=== PATIENT | female | born 1945 | race Caucasian/White ===

== ENCOUNTER 2019-11-16 11:17 | Emergency (ER) | payer OTHER, SELFPAY ==
--- NOTE | ~2019-11-16 | XR_ITS ---
EXAMINATION: XR chest 2V DATE: 11/16/2019 12:43 INDICATION: Shortness of breath. Dizziness. TECHNIQUE: Frontal and lateral views of the chest were obtained. COMPARISON: Chest 2 views 06/20/2017 FINDINGS: There is mild scarring at left lung apex without change. No pleural effusion or pneumothora x. The heart size is normal. IMPRESSION: 1. Mild scarring at left lung apex. Reviewed, dictated and finalized at location A.
--- NOTE | 2019-11-16 11:19 | ECG_ITS ---
Measurements Intervals [place] Rate: 75 P: 52 HI: 122 QRS: 40 QRSD: 81 T: 58 QT: 400 QTc: 447 Interpretive Statements SINUS RHYTHM BASELINE ARTIFACT- I, II, III, AVR, AVL, AVF, V1-V3 BORDERLINE ECG Electronically Signed On 11-16-2019 11:31:46 CDT by Jassi Joseph D.O.
[2019-11-16 11:27] VITALS: BP 134/66; PULSE 75; RESP 30; TEMP 36.9; O2SAT 100
[2019-11-16 11:52] VITALS: BP 178/97; PULSE 72; RESP 30; O2SAT 100
--- NOTE | 2019-11-16 11:52 | ED.GENADULT ---
HPI - General Adult General Chief complaint: Unspecified Stated complaint: SOB Time Seen by Provider: 11/16/19 11:40 History of Present Illness HPI narrative: BIBEMS from PCP office for SOB and fatigue. She reports that she has felt short of breath for the past few days. This is associated with tingling in the hands and feet, chills, weakness, and fatigue. She reports poor PO intake. Related Data Home Medications Medication Instructions Recorded Confirmed citalopram 40 mg tablet 40 mg PO DAILY tablet 05/18/19 levothyroxine 25 mcg tablet 25 mcg PO DAILY 05/18/19 Allergies Allergy/AdvReac Type Severity Reaction Status Date / Time cefaclor Allergy Unknown unknown Verified 11/16/19 10:54 Review of Systems Review of Systems: All systems reviewed & are unremarkable except as noted in HPI and below Constitutional: Constitutional: Reports chills and Denies fever(s) Eyes: Eyes: Denies change in vision ENT: Denies sore throat Cardiovascular: Cardiovascular: Denies chest pain Respiratory: Respiratory: Denies cough and Reports dyspnea Gastrointestinal: Gastrointestinal: Denies nausea and Denies vomiting Genitourinary: Genitourinary: Denies dysuria Neurologic: Denies numbness and Denies weakness Psychiatric: Psychiatric: Reports anxiety PMFSH Past Medical History Medical History (Updated 11/16/19 @ 15:30 by Carlitos Altamirano MD) BP (high blood pressure) Insomnia Neuropathy OCD (obsessive compulsive disorder) PAF (paroxysmal atrial fibrillation) Squamous cell carcinoma, tongue border Family History Family History (Updated 01/10/16 @ 23:21 by DOCTOR UNKNOWN) Sibling Patient's sister is in good health Mother Family history of malignant neoplasm of brain Patient's mother is Father Family history of heart disease in male family member before age 55 Social History Social History (Updated 05/19/19 @ 10:22 by Mary Rasheed) Smoking packs per day: 0.5 Smoking cigarettes per day: 10.0 Smoking status: Former smoker Tobacco type: cigarettes Second hand tobacco smoke exposure: No Smoking end date: 06/14/89 Alcohol intake: never Substance use: never Substance use type: does not use Gender identity (if verbalized by the patient): Female Exam Const: General: healthy appearing and alert Orientation/consciousness: patient oriented x3 Limitations: no limitations HENMT: Head: normal to inspection Eyes: Pupils: Equal, round and reactive pupils present Resp: Effort & Inspection: tachypneic Auscultation: clear to auscultation bilaterally Cardio: Rate: regular rate Rhythm: regular rhythm GI: GI Palp: Yes Soft to palpation and No Tenderness to palpation present (GI) Skin: General skin exam: normal color Wounds: no wounds Neuro: General: patient oriented x3, moves all extremities and CN's II-XI intact bilaterally Speech: normal speech Extrem: General: normal to inspection and no edema Psych: Affect: Anxious affect present Course Vital Signs Vital signs: Vital Signs Temperature 36.9 C 11/16/19 11:27 Pulse Rate 75 11/16/19 11:27 Respiratory Rate 30 H 11/16/19 11:27 Blood Pressure 134/66 11/16/19 11:27 Pulse Oximetry 100 11/16/19 11:27 Temperature 36.9 C 11/16/19 11:27 Pulse Rate 74 11/16/19 15:27 Respiratory Rate 25 H 11/16/19 15:27 Blood Pressure 157/96 H 11/16/19 15:27 Pulse Oximetry 98 11/16/19 15:27 Medical Decision Making MDM Narrative Medical decision making narrative: She is very anxious. This is supported by significant respiratory alkalosis. Labs also indicate mild dehydration. Medical Records Medical records reviewed: Yes I reviewed the patient's medical records. Vital Signs Vital Signs: Vital Signs Temperature 36.9 C 11/16/19 11:27 Pulse Rate 75 11/16/19 11:27 Respiratory Rate 30 H 11/16/19 11:27 Blood Pressure 134/66 11/16/19 11:27 Pulse Oximetry 100 11/16/19 11:27
[2019-11-16 11:58] LABS: Potassium 3.9 mmol/L (3.4-5.0); Sodium 137 mmol/L (137-145)
[2019-11-16 11:59] LABS: Blood Urea Nitrogen 17 mg/dL (7-17); Carbon Dioxide 18 mmol/L (22-30); Chloride 107 mmol/L (98-107); Estimated CRCL calculation 28 ml/min; Estimated Glomerular Filt Rate 34; Glucose 100 mg/dL (65-105)
[2019-11-16 12:15] LABS: Hematocrit 45.2 % (37.0-47.0); Hemoglobin 15.3 g/dL (12.0-15.0); Mean Corpuscular Hemoglobin 30.7 pg (26-34); Mean Corpuscular Volume 90.6 fl (80-100); Mean Platelet Volume 11.5 fl (7.4-10.4); Platelet Count Result 291 k/mm3 (150-375); Red Blood Count 4.99 M/mm3 (4.2-5.4); White Blood Count 9.9 K/mm3 (4.5-10.0)
[2019-11-16 12:16] LABS: Basophils Percent Auto 0.4 % (0.2-1.2); Eosinophils Percent Auto 0.1 % (0-4.4); Immature Granulocyte Absolute 0.03 K/mm3 (0.00-0.031); Immature Granulocyte Percent A 0.3 % (0-0.5); Lymphocytes Absolute Auto 1.66 K/mm3 (0.9-3.2); Lymphocytes Percent Auto 16.7 % (18.3-44.2); Mean Corpuscular HGB Conc 33.8 g/dl (32-36); Monocytes Absolute Auto 0.7 K/mm3 (0.1-0.6); Monocytes Percent Auto 7.1 % (2.6-8.5); Neutrophils Absolute Auto 7.5 K/mm3 (1.3-6.7); Neutrophils Percent Auto 75.4 % (45.5-73.1); Red Cell Distribution Width 13.4 % (11.5-14.5)
[2019-11-16 12:17] LABS: Immature Platelet Fraction Pct 2.6 % (0.9-11.2)
[2019-11-16 12:27] LABS: pH ABG 7.669 (7.350-7.450)
[2019-11-16 12:28] LABS: Alveolar/Arterial O2 Gradient 28.6 mmHg; Base Excess ABG -0.8 mEq/l (+/-2.0); Fractional Inspired Oxygen 21 %; HCO3 ABG 16.1 mEq/l (22.0-26.0); Oxygen Content ABG 20.3 %vol (16.0-22.0); Oxygen Saturation ABG 98.8 % (95.0-100.0); Oxyhemoglobin 97.3 % THb (90.0-100.0); PCO2 ABG 14.3 mmHg (35.0-45.0); PO2 FiO2 Ratio Arterial Blood 4.95 %; Site Drawn RIGHT BRACHIAL; Total Hemoglobin 14.8 g/dL (12.0-18.0)
[2019-11-16 12:29] LABS: Device ROOM AIR
[2019-11-16] MEDS: SODIUM CHLORIDE 0.9% IV 1,000 ML 999 ML IV CONT (12:43)
[2019-11-16 12:45] VITALS: BP 138/82; PULSE 72; RESP 27; O2SAT 100
[2019-11-16] MEDS: LORAZEPAM INJ 2 MG/ML VIAL 1 MG IV PUSH (13:17)
--- NOTE | 2019-11-16 13:20 | PC.NURSE ---
Patient attempted to use bathroom for urine sample and is unable to go at this time.
[2019-11-16 14:38] LABS: Add Urine Microscopic? YES; Appearance Urine Clear (Clear); Bilirubin Urine Negative (Negative); Blood Urine Negative (Negative); Color Urine Yellow (Yellow); Glucose Urine UA Negative (Negative); Ketones Urine 1+ mg/dL (Negative); Leukocyte Esterase Ur Negative LEU/UL (Negative); Mucus Urine Rare /lpf; Nitrate Urine Negative (Negative); Protein Urine 1+ mg/dL (Negative); RBC Urine 0-2 /hpf (0-2); Specific Grav Ur 1.016 (1.001-1.035); WBC Urine 0-3 /hpf
[2019-11-16 15:27] VITALS: BP 157/96; PULSE 74; RESP 25; O2SAT 98
[2019-11-16] MEDS: CLONAZEPAM 0.5 MG TAB 2 MG PO (15:31)
== END 2019-11-16 15:46 | disposition home or self-care (01) ==
PROVIDERS: Emergency Provider Emergency Medicine; PCP Family Medicine
DX: F41.9 Anxiety disorder, unspecified (principal); E86.0 Dehydration; I10 Essential (primary) hypertension; I48.0 Paroxysmal atrial fibrillation; G62.9 Polyneuropathy, unspecified; Z87.891 Personal history of nicotine dependence; F42.9 Obsessive-compulsive disorder, unspecified
CPT/HCPCS: 36415; 36600; 51701; 71046; 80048; 81001; 82805; 85025; 85055; 93005; 96361; 96374; 99284; A9270; J2060; J7030

== ENCOUNTER → 2020-03-08 10:25 | Outpatient (CLI) | payer OTHER, SELFPAY ==
--- NOTE | ~2020-03-08 | MR_ITS ---
EXAMINATION: MR brain/brain stem wo con EXAM DATE: 03/08/2020 11:10 INDICATION: Difficulty with speech. Transient cerebral ischemic attack. TECHNIQUE: Magnetic resonance imaging (MRI) of the brain/brain stem obtained without contrast. Sagitt al T1, axial diffusion, gradient echo (T2*), T1, T2, FLAIR sequences obtained. There is no prior st udy for comparison. FINDINGS: There are no areas of restricted diffusion to suggest acute infarction. There is no acute hemorrhage seen on the T2*, a hemosiderin sensitive sequence. No intraparenchymal brain mass lesion. There is mild periventricular and subcortical T2/FLAIR signal hyperintensity, nonspecific but probab ly related to small vessel ischemic disease (microangiopathy). There is mild prominence of the sulc i and ventricles related to cerebral atrophy. There are no extra-axial collections. Flow voids are seen in the cerebral arteries on the T2-weighted sequences consistent with their expected patency. Patient has had bilateral ocular lens surgery. Soft tissue is unremarkable. IMPRESSION: 1. No acute intracranial findings. 2. Mild age related findings. Reviewed, dictated and finalized at location B.
== END ==
PROVIDERS: PCP Family Medicine; Visit Provider Family Medicine
DX: G45.9 Transient cerebral ischemic attack, unspecified (principal)
CPT/HCPCS: 70551

== ENCOUNTER 2021-03-20 14:48 | Outpatient (RCR) | payer OTHER, SELFPAY | END 2021-03-20 23:59 | disposition home or self-care (01) | LOC: ANHAUDIO 14:48 | PROVIDERS: PCP Family Medicine; Visit Provider Family Medicine | DX: Z46.1 Encounter for fitting and adjustment of hearing aid (principal) | CPT/HCPCS: 92593 ==

== ENCOUNTER 2024-11-10 09:42 | Outpatient (CLI) | payer OTHER, SELFPAY ==
--- OUTSIDE RECORDS SUMMARY | 2024-11-10 09:55 | XMS_ITS | Clinical Summary ---
Author Organization [facility] Address [address] [place] [address] Care Team Providers Care Wheel Roller Name Role Phone Beverly Rey MD Primary Care Provider Miscellaneous, Not In File Unavailable Unava ilable Allergies Active Allergy Reactions Criticality Noted Date Comments Cefaclor Unknown,Anaphylaxis High 07/20/2017 Medications citalopram (CeleXA) 40 mg tablet 20 mg nightly 2 06/10/2017 Active pregabalin (LYRICA) 200 mg capsule Take 200 mg by mouth 3 (three) times a day 11/05/2020 Active zolpidem (AMBIEN) 10 mg tablet Take 0.5 mg by mouth nightly 11/10/2020 Active atorvastatin (LIPITOR) 80 mg tablet Take 1 tablet (80 mg total) by mouth nightly 30 tablet 11 01/31/2021 Active levothyroxine (SYNTHROID) 50 mcg tablet daily 03/03/2021 Active aspirin 325 mg tablet Take 325 mg by mouth daily Active liothyronine (CYTOMEL) 5 mcg tablet Take 10 mcg by mouth daily Active ezetimibe (ZETIA) 10 mg tablet TAKE 1 TABLET BY MOUTH EVERY DAY 30 tablet 12/11/2022 Active Active Problems Problem Noted Date Diagnosed Date Hemiparesis affecting left side as late effect o f stroke 03/07/2022 Mixed hyperlipidemia 03/07/2022 Carotid occlusion, bilateral 01/09/2022 Snoring 01/09/2022 Neuropathy 01/09/2022 Multifactorial gait disorder 01/09/2022 Pure hypercholesterolemia 03/18/2021 Stroke due to Right ICA stenosis 01/22/2021 Atelectasis of right middle ear 03/26/2020 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 07/17/2015 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/26/2014 Resolved Problems Problem Noted Date Diagnosed Date Resolved Date Typical atrial flutter (CMS/HCC) 07/20/2017 01/09/2022 Immunizations Immunization Administration Dates Next Due Influenza, Quad, Adjuvantated, Intramuscular 06/2019 Influenza, Trivalent, Adjuvanted, Intramuscular 02/18/2019 Influenza, Trivalent, High D ose, Split, Preservative Free, Intramuscular 03/07/2018,03/06/2018 Influenza, Trivalent, IM (MDV) 05/18/2013 Influenza, Trivalent, Preservative Free, Intramu scular 03/23/2017,03/20/2015 Pfizer SARS-CoV-2 Monovalent Vaccination (12+ Yrs) WARREN-READY TO USE 01/09/2022 Pneumococcal Conjugate PCV 13 03/06/2019, 019 Pneumococcal Polysaccharide PPV23 03/05/2020 ZOSTER Recombinant 01/15/2020,03/31/2019 Surgical History Surgery Date Site/Laterality Comments PORT REMOVAL 05/16/2015 N/A CHANGE G TUBE 02/25/2015 N/A IR G TUBE PLACEMENT PERCUTANEOUS 01/18/2015 N/A PORT PLACEMENT CHEST >5 YEARS 10/13/2014 N/A BREAST BIOPSY 04/28/2018 Right ANGIO SELECTIVE CAROTID 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 Never 03/03/2021 Average Number of Drinks Not on file 021 Frequency of Binge Drinking Not on file 02/13 PHQ-2 Answer Date Recorded PHQ-2 Total Score (If total score is 3 or more points, staff should administer the PHQ-9) 0 01/22/2021 Comments No Sex and Gender Information Value Date Recorded Sex Assigned at Not on file Legal Sex Female 1:[address] ABSTRACTOR Gender Identity Not on file Sexual Orientation Not on file Obstetrics History Last Filed Vital Signs Vital Sign Reading Time Taken Comments Blood Pressure 136/85 01/09/2022 9:47 AM CDT Pulse 71 01/09/2022 9:47 AM CDT Temperature 36.7 C (98 F) 08/29/2021 7:36 AM CDT Respiratory Rate 17 08/29/2021 9:15 AM CDT Oxygen Saturation 98% 08/29/2021 10:00 AM CDT Inhaled Oxygen Concentration - - Weight 75.8 kg (167 lb) 01/09/2022 9:47 AM CDT Height 160 cm (5' 3) 01/09/2022 9:47 AM CDT Body Mass Index 29.58 01/09/2022 9:47 AM CDT Plan of Treatment Health Maintenance Due Date Last Done Comments Hepatitis C Screening 1945 Osteoporosis Screening-Bone Density Scan 1945 DTaP/Tdap/Td Vaccine (1 - Tdap) 11/02/1958 Hepatitis B Screening 11/02/1965 Well Visit 65+ 11/02/2012 Depression Screening 01/22/2022 01/22/2021 Fall Risk Assessment 08/29/2022 08/29/2021 Covid-19 Vaccine (2023-2 5 season) 2024 01/09/2022, 05/28/2021, 08/19/2020 Influenza Vaccine (Season Ended) 2025 05/28/2021, 02/13/2020, 02/18/2019, Additional history exists Zoster Vaccine Completed 01/15/2020, 03/31/2019 Pneumococcal vaccine 65+ Completed 020, 03/06/2019, 03/05/2019 Breast Cancer Screening-Mammogram Discontinued 06/26/2020, 04/20/2019, 04/01/2018, Additional history exists Medical Devices Implanted Type Area Corporation Secretary Device Identifier Shelf Expiration Date Model / Serial / Lot Arteaga Vascular 47740-23 Starclose Se 6fr Clip Vascular Device Closure Nitinol Sterile - [id number] Implanted:Qty: 1 on 01/24/2021 at [facility] [employer] 09/12/2021 1467 9- / / [id number] Medtronic Inc [id number] Protege Gps Exprt 6mm 6fr 40mm 135cm Rapid Exchange Self Expand - [id number] Implanted:Qty: 1 on 01/28/2021 at [facility] [employer] Inc SECX-6 -40-13 5 / / [employer] [id number] Starclose Se 6fr Clip Vascular Device Closure Nitinol Sterile - [id number] - [id number] Implanted:Qty: 1 on 01/28/2021 at [facility] [employer] 1467 02-12 [id number] / Procedures Procedure Name Priority Date/Time Associated Diagnosis Comments SCREENING MAMMOGRAM BILATERAL W DARIEN W IMPLANTS Schedule Routine, Read Routine (OP Routine) 06/26/2020 2:[address] ABSTRACTOR Encounter for screening mammogram for malignant neoplasm of breast from Last 3 Months or Most Recently Relevant to Health Maintenance Results * Screening Mammogram Bilateral w Darien w Implants (06/26/2020 2:[address] ABSTRACTOR) Anatomical Region Laterality Modality Breast Bilateral Mammography Narrative 07/01/2020 12:[address] ABSTRACTOR Mammogram Technique: Bilateral Digital Breast Tomosynthesis, Bilateral C-view 2D Screening mammogram. Views obtained: bilateral craniocaudal; bilateral craniocaudal implant displaced; bilateral mediolateral oblique; and bilateral mediolateral oblique implant displaced. Computer Aided Detection was performed. Mammogram Findings: The present examination has been compared to prior imaging studies performed at [facility] on 04/01/2018, 04/08/2018 and 04/20/2019. The breasts are heterogeneously dense, which may obscure small masses. There are bilateral silicone gel implants. There is no suspicious abnormality in either breast. Impression: There is no mammographic evidence of malignancy. Annual screening mammography is recommended. OVERALL FINAL ASSESSMENT: BI-RADS CATEGORY 1: Negative. Procedure Note Lottie John MD - 07/01/2020 Mammogram Technique: Bilateral Digital Breast Tomosynthesis, Bilateral C-view 2D Screening mammogram. Views obtained: bilateral craniocaudal; bilateralcraniocaudal implant displaced; bilateral mediolateral oblique; and bilateral mediolateral oblique implant displaced. Computer Aided Detection was performed. Mammogram Findings: The present examination has been compared to prior imaging studies performed at [facility] on 04/01/2018, 04/08/2018 and 04/20/2019. The breasts are heterogeneously dense, which may obscure small masses. There are bilateral silicone gel implants. There is no suspicious abnormality in either breast. Impression: There is no mammographic evidence of malignancy. Annual screening mammography is recommended. OVERALL FINAL ASSESSMENT: BI-RADS CATEGORY 1: Negative. us Self Screening Mammogram IMG MAMMO PROCEDURES Fi nal Result from Last 3 Months or Most Recently Relevant to Health Maintenance Insurance [facility] MEDICARE [employer] Advance Directives For more information, please contact: [phone] * Full Code (Latest Code Status on File) Date Activated Date Inactivated Comments 08/29/2021 9:42 AM 09/05/2021 4:47 AM * Full Code Date Activated Date Inactivated Comments 01/23/2021 5:27 PM 01/31/2021 6:28 PM Care Teams Wheel Roller Relationship Specialty Start Date End Date Beverly Rey MD [address] [facility] [address] [place] [id number] PCP - General 10/05/16 Miscellaneous, Not In File 01/31/21
--- OUTSIDE RECORDS SUMMARY | 2024-11-10 09:55 | XMS_ITS | Encounter Summary ---
Author Organization [facility] Healthcare Address [address] [place] [address] Care Team Providers Care Oyster Washer Name Role Phone Beverly Rey MD Primary Care Provider Miscellaneous, Not In File Unavailable Unava ilable Encounter Details Date Type Department Care Team (Late st Contact Info) Description 06/25/2020 Telephone [facility] Breast Imaging [facility] ([facility]) [address] [place] [id number] Velma Perez, RT Social History Tobacco Use Types Packs/Day Years Used Date Smoking Tobacco: Never Smokeless Tobacco: Never Alcohol Use Standard Drinks/Week Comments No 0 (1 standard drink = 0.6 oz pur e alcohol) Comments Unknown Sex and Gender Information Value Date Recorded Sex Assigned at Not on file Legal Sex Female 1:28 AM DRY FINISHER Gender Identity Not on file Sexual Orientation Not on file documented as of this encounter Plan of Treatment Not on file documented as of this encounter Visit Diagnoses Not on filedocumented in this encounter Care Teams Oyster Washer Relationship Specialty Start Date End Date Beverly Rey MD [address] [facility] [address] [place] [address] PCP - General 10/05/16 Miscellaneous, Not In File 01/31/21 documented as of this encounter
--- OUTSIDE RECORDS SUMMARY | 2024-11-10 09:55 | XMS_ITS ---
Author Organization [facility] Address [address] [place] [address] Care Team Providers Care Butcher Supervisor Name Role Phone Beverly Rey MD Primary Care Provider Miscellaneous, Not In File Unavailable Unava ilable Active Problems Problem Noted Date Diagnosed Date [...] neoplasm of soft tissues of neck 09/26/2014 Current Treatment and Therapy Plans No current plan information found. Past Treatment and Therapy Plans No past plan information found. Lifetime Dose Tracking * Chemical Lifetime Dose Automatic Entry Manual Entr y Fluoro Time 31.3 minutes 31.3 minutes 0 minutes Air kerma at the reference point (Ka,r) 1,044 mGy 1 ,044 mGy 0 mGy DLP 5,828 mGycm 5,828 mGycm 0 mGycm Resolved Problems Problem Noted Date Diagnosed Date Resolved Date Typical atrial flutter (CMS/HCC) 07/20/2017 01/09/2022
--- OUTSIDE RECORDS SUMMARY | 2024-11-10 09:55 | XMS_ITS | Referral Summary ---
Author Organization [facility] Address [address] [place] [address] Care Team Providers Care Architectural Examiner Name Role Phone Beverly Rey MD Primary [...] Pneumococcal Polysaccharide PPV23 03/05/2020 ZOSTER Recombinant 01/15/2020,03/31/2019 Social History Tobacco Use Types Packs/Day Years [...] on file Legal Sex Female 1:28 AM SKI TECHNICIAN Gender Identity Not on file Sexual Orientation Not on file Last Filed Vital Signs Vital Sign Reading [...] 01/09/2022 9:47 AM CDT Plan of Treatment Not on file Medical Devices Implanted Type Area Quiller Tender Device Identifier Shelf Expiration Date Model / Serial / Lot [employer]te[employer] Vascular [id number] Starclose Se 6fr Clip Vascular Device Closure Nitinol Sterile - [id number] Implanted:Qty: 1 on 01/24/2021 at [facility] [employer] 09/12/2021 1467 9-01 / / [id number] Medtronic Inc [id number]-[id number] Protege Gps Exprt 6mm 6fr 40mm 135cm Rapid Exchange Self Expand - [id number] Implanted:Qty: 1 on 01/28/2021 at [facility] [employer] SECX-6 -40-13 5 / / [employer]ascular [id number] Starclose Se 6fr Clip Vascular Device Closure Nitinol Sterile - [id number] - [id number] Implanted:Qty: 1 on 01/28/2021 at [facility] [employer] 1467 9- [id number] / Procedures Procedure Name Priority Date/Time Associated Diagnosis Comments SCREENING MAMMOGRAM BILATERAL W DARIEN W IMPLANTS Schedule Routine, Read Routine (OP Routine) 06/26/2020 2:37 PM SKI TECHNICIAN Encounter for screening mammogram for malignant neoplasm of breast from Last 3 Months or Most Recently Relevant to Health Maintenance Results * Screening Mammogram Bilateral w Darien w Implants (06/26/2020 2:37 PM SKI TECHNICIAN) Anatomical Region Laterality Modality Breast Bilateral Mammography Narrative 07/01/2020 12:18 PM SKI TECHNICIAN Mammogram Technique: Bilateral Digital Breast Tomosynthesis, Bilateral C-view 2D Screening mammogram. Views obtained: bilateral craniocaudal; bilateral craniocaudal implant displaced; bilateral mediolateral oblique; and bilateral mediolateral oblique implant displaced. Computer Aided Detection was performed. Mammogram Findings: The present examination has been compared to prior imaging studies performed at [facility] on 04/01/2018, 04/08/2018 and 04/20/2019. The breasts [...] compared to prior imaging studies performed at [facility] on 04/01/2018, 04/08/2018 and 04/20/2019. The breasts [...] Most Recently Relevant to Health Maintenance Insurance [facility] MEDICARE [employer] [facility] Advance Directives For more information, please contact: [phone] * Full Code (Latest Code Status on File) Date Activated Date Inactivated Comments 08/29/2021 9:42 AM 09/05/2021 4:47 AM * Full Code Date Activated Date Inactivated Comments 01/23/2021 5:27 PM 01/31/2021 6:28 PM Care Teams Architectural Examiner Relationship Specialty Start Date End Date Beverly Rey MD [address] [facility] [address] [place] [address] PCP - General 10/05/16 Miscellaneous, Not In File 01/31/21
--- OUTSIDE RECORDS SUMMARY | 2024-11-10 09:55 | XMS_ITS | Continuity of Care Document ---
Author Organization [facility] Address [address] [place] [address] Phone Care Team Providers Care Addressograph Operator Name Role Phone Antonoi Chavez Unavailable Unavailable Procedures Procedure Date Eye Exam & Treatment Refraction Eye Exam & Treatment Refraction Vision Svcs Frames Purchases SV Hi Index Sph Glynn To +/- 4 07 Tint Photochromatic, Polycarb 7 Anti-reflective Coating Tax - Medical Eye Exam & Treatment Refraction Advance Directives Directive Yes / No Effective Date File Name No Information Encounters Encounter Description Practice Location Reason(s) For Visit Diagnoses Date Provider Providers Copied on Encounter [facility], [address] [place] [address] [address], [place], [place], [id number], tel:[phone] [facility] No Information 5-201 0 Krishnasamy Antonio. [address] [place] [address], [place], [address], [place]. tel:[phone] [facility], [address] [place] [address] [address], [place], [place], [id number], [phone] [facility] No Information 5-200 9 Krishnasamy Antonio. [address] [place] [address], [place], [address], [place]. tel:[phone] [facility] Eye [facility], [address], [place], [place], [id number], [place] tel:[phone] [facility] No Information Dec- 4-200 7 [facility]. [address] [facility], [address], [place], [place], [id number], [place]. tel:[phone] Referring Provider: Koffi Sterling OD [place], [address], [place], [address]. tel:[phone] g Provider: Ekta De La Paz, [address] [facility], [place], [address]. tel:[phone] [facility], [address], [place], [place], [id number], [place] tel:[phone] [facility] No Information 0200 7 Sterling OD Koffi. [address] [facility] [address] , [address], [place], [address], [place]. tel:[phone] Family History Family Member Type Diagnosis Age At Onset No Information Payers Payer name Insurance type Covered libertarian ID Authorobinnaa clarissadorcas(s) [facility] CI [id number] Social History Type Description Quantity Date Captured Comments Sex Female Smoking Status No Information Chief Complaint And Reason For Visit No Information Reason For Referral Reason For Referral No Information History Of Present Illness Encounter Date Complaint History Of Prese nt Illness No Information Functional Status Date Functional Assessmen t No Information Instructions Date Instruction Additional Infor mation No Information Assessments Type Assessment Date No Information Patient Care Teams Name Effective Dates (start - stop) Status Members No Information
[2024-11-10 10:10] LABS: Basophils Percent Auto 0.3 % (0.2-1.2); Eosinophils Absolute Auto 0.1 K/mm3 (0-0.3); Eosinophils Percent Auto 0.8 % (0-4.4); Hematocrit 44.8 % (37.0-47.0); Hemoglobin 14.7 g/dL (12.0-15.0); Immature Granulocyte Absolute 0.02 K/mm3 (0.00-0.031); Immature Granulocyte Percent A 0.3 % (0-0.5); Lymphocytes Absolute Auto 1.12 K/mm3 (0.9-3.2); Mean Corpuscular HGB Conc 32.8 g/dl (32-36); Mean Corpuscular Hemoglobin 32.8 pg (26-34); Mean Platelet Volume 10.6 fl (7.4-10.4); Monocytes Absolute Auto 0.5 K/mm3 (0.1-0.6); Neutrophils Absolute Auto 4.9 K/mm3 (1.3-6.7); Neutrophils Percent Auto 74.6 % (45.5-73.1); Platelet Count Result 229 k/mm3 (150-375); Red Blood Count 4.48 M/mm3 (4.2-5.4); Red Cell Distribution Width 13.8 % (11.5-14.5); White Blood Count 6.6 K/mm3 (4.5-10.0)
[2024-11-10 10:20] LABS: Alanine Aminotransferase 24 U/L (6-35); Albumin Level 4.2 g/dL (3.5-5.1); Alkaline Phosphatase 124 U/L (38-126); Anion Gap 9 mmol/L (4-12); Aspartate Amino Transferase 33 U/L (14-36); Bilirubin,Total 0.5 mg/dL (0.2-1.3); Blood Urea Nitrogen 9 mg/dL (7-17); Calcium 9.2 mg/dL (8.4-10.2); Carbon Dioxide 21 mmol/L (22-30); Chloride 108 mmol/L (98-107); Cholesterol 151 mg/dL (0-200); Estimated Glomerular Filt Rate 60; Glucose 155 mg/dL (65-110); HDL Direct 40 mg/dL; Potassium 4.3 mmol/L (3.4-5.0); Sodium 138 mmol/L (137-145); Triglycerides 150 mg/dL (<150)
[2024-11-10 10:31] LABS: LDL Cholesterol Direct 72 mg/dL
[2024-11-10 10:58] LABS: Free T4 Free Thyroxine 0.68 ng/dL (0.78-2.19)
== END 2024-11-10 09:43 | disposition home or self-care (01) ==
PROVIDERS: PCP Family Medicine; Visit Provider Family Medicine
DX: E07.9 Disorder of thyroid, unspecified (principal); E03.9 Hypothyroidism, unspecified; F41.1 Generalized anxiety disorder; E78.2 Mixed hyperlipidemia; N18.30 Chronic kidney disease, stage 3 unspecified
CPT/HCPCS: 36415; 80053; 80061; 84439; 84443; 85025